=== PATIENT | female | born 1980 | race African-American/Black ===

== ENCOUNTER 2018-10-10 13:03 | Emergency (ER) | payer SELFPAY ==
[~2018-10-10] VITALS: Ht 167.6 cm; Wt 95.0 kg
[2018-10-10 13:07] VITALS: BP 159/94
== END 2018-10-10 14:23 | disposition left against medical advice (07) ==
LOC: ER 13:21
DX: R10.0 Acute abdomen (principal); R11.10 Vomiting, unspecified; R03.0 Elevated blood-pressure reading, without diagnosis of hypertension; F12.90 Cannabis use, unspecified, uncomplicated
CPT/HCPCS: 99283